=== PATIENT | male | born 1970 | race Caucasian/White ===

== ENCOUNTER 2019-04-12 06:13 | Emergency (ER) | payer OTHER ==
[2019-04-12 06:26] VITALS: BP 141/83; PULSE 77; RESP 20; TEMP 98.1
--- NOTE | 2019-04-12 06:36 | ED ---
Lower Extremity Injury HPI - General Chief Complaint: Extremity Injury, Lower Stated Complaint: [facility] Rt Knee Injury Time Seen by Provider: 04/12/19 06:22 Source: patient, RN notes reviewed Mode of arrival: wheelchair Limitations: no limitations - History of Present Illness Initial Comments: 49-year-old male presents emergency Department with chief complaint of right knee pain. Patient states that he was at work states he went to step down on the step and states that his knee buckled. Patient states his pain in the medial aspect of his knee. Patient states she hasn't it is burning in nature. He states he never felt that his knee moved posteriorly. Patient states he has had surgery on his ACL and meniscus. Patient denies any swelling, bruising at this time. - Related Data Allergies Allergy/AdvReac Type Severity Reaction Status Date / Time No Known Allergies Allergy Verified 04/12/19 06:25 Review of Systems ROS Statement: Those systems with pertinent positive or pertinent negative responses have been documented in the HPI. ROS Other: All systems not noted in ROS Statement are negative. Past Medical History Additional Past Medical History / Comment(s): tetralogy of fallot History of Any Multi-Drug Resistant Organisms: None Reported Past Surgical History: Orthopedic Surgery Past Psychological History: No Psychological Hx Reported Smoking Status: Never smoker Past Alcohol Use History: Occasional Past Drug Use History: None Reported General Exam Limitations: no limitations General appearance: alert, in no apparent distress Head exam: Present: atraumatic, normocephalic, normal inspection Eye exam: Present: normal appearance, PERRL, EOMI. Absent: scleral icterus, conjunctival injection, periorbital swelling Neck exam: Present: normal inspection, full ROM. Absent: tenderness, meningismus, lymphadenopathy Respiratory exam: Present: normal lung sounds bilaterally. Absent: respiratory distress, wheezes, rales, rhonchi, stridor Cardiovascular Exam: Present: regular rate, normal rhythm, normal heart sounds. Absent: systolic murmur, diastolic murmur, rubs, gallop, clicks Extremities exam: Present: other (Right knee there is mild tenderness along the medial aspect. There is no notable swelling, ecchymosis or erythema. Patient has equal pedal pulses. Patient reports pain with valgus, no laxity with anterior posterior drawer test) Skin exam: Present: warm, dry, intact, normal color. Absent: rash Course Vital Signs 04/12/19 06:22 Temperature 98.1 F Pulse Rate 77 Respiratory 20 Rate Blood Pressure 141/83 O2 Sat by Pulse 97 Oximetry Medical Decision Making - Medical Decision Making 49-year-old male presented for right knee injury. X-rays obtained which shows small joint effusion. Patient symptoms consistent with her medial knee sprain. Patient we placed in knee immobilizer will follow-up with [facility] return for any worsening symptoms. Disposition Clinical Impression: Right knee sprain Disposition: HOME SELF-CARE Condition: Stable Instructions (If sedation given, give patient instructions): Knee Sprain (ED) Additional Instructions: Please return to the Emergency Department if symptoms worsen or any other concerns. Is patient prescribed a controlled substance at d/c from ED?: No Referrals: Houston Solares MD [Primary Care Provider] - 1-2 days Time of Disposition: 06:56
--- NOTE | 2019-04-12 06:48 | XR ---
EXAM: XR Right Knee, 3 Views CLINICAL HISTORY: ITS.REASON XR Reason: Medial knee pain TECHNIQUE: Three views of the right knee. COMPARISON: No relevant prior studies available. FINDINGS: Bones/joints: Unremarkable. No acute fracture. No dislocation. Soft tissues: Unremarkable. Other findings: Slight fullness in the suprapatellar region. IMPRESSION: 1. No acute bony abnormality. 2. Suspect tiny joint effusion. 3. If symptoms persist and are out of proportion to the radiographic finding, consider further evaluation with MR
== END 2019-04-12 07:22 | disposition home or self-care (01) ==
LOC: EC 06:13
DX: S83.91XA Sprain of unspecified site of right knee, initial encounter (principal); Q21.3 Tetralogy of Fallot; Z98.890 Other specified postprocedural states; X50.1XXA Overexertion from prolonged static or awkward postures, initial encounter; Y93.89 Activity, other specified; Y92.69 Other specified industrial and construction area as the place of occurrence of the external cause; Y99.0 Civilian activity done for income or pay
CPT/HCPCS: 73562; 99283; L1830

== ENCOUNTER → 2023-12-25 | Outpatient (CLI) | payer BC ==
[2023-12-25 14:27] LABS: Basophils # (A) 0.02 X 10*3/uL (0.00-0.10); Basophils % (A) 0.3 %; Eosinophils # (A) 0.38 X 10*3/uL (0.04-0.35); Eosinophils % (A) 5.7 %; HCT 49.6 % (39.6-50.0); Lymphocytes # (A) 2.37 X 10*3/uL (0.90-5.00); Lymphocytes % (A) 35.5 %; MCH 30.7 pg (27.0-32.0); MCHC 34.3 g/dL (32.0-37.0); MCV 89.5 FL (80.0-97.0); Mean Platelet Volume 10.2 FL (9.5-12.2); Monocytes # (A) 0.61 X 10*3/uL (0.20-1.00); Monocytes % (A) 9.1 %; NRBC Per 100 WBC 0 X 10*3/uL (0.00-0.01); Neutrophils # (A) 3.28 X 10*3/uL (1.80-7.70); Neutrophils % (A) 49.1 %; Platelet Count 292 X 10*3/uL (140-440); RBC 5.54 X 10*6/uL (4.40-5.60); WBC 6.68 X 10*3/uL (4.50-10.00)
== END | disposition home or self-care (01) ==
LOC: LABWHC1 08:33
PROVIDERS: ATTEND Surgery
DX: Z01.818 Encounter for other preprocedural examination (principal); K42.9 Umbilical hernia without obstruction or gangrene
CPT/HCPCS: 85025; 86850; 86900; 86901; 93005

== ENCOUNTER 2024-01-02 05:40 | Day surgery (SDC) | payer BC, OTHER ==
[2024-01-02] MEDS ORDERED: LACTATED RINGERS 1,000 ML IV SCH (06:01)
[2024-01-02] MEDS ORDERED: LIDOCAINE 1% (10MG/ML) FOR IV START INTRADERMA PRN (06:01)
[2024-01-02] MEDS: IV FLUID CONTINUATION 1,000 ML IV ONE (06:06)
[2024-01-02] MEDS: ONDANSETRON 4 MG/2 ML VIAL IVP ONE (06:52)
[2024-01-02] MEDS: HEPARIN SODIUM,PORCINE 5,000 UNIT/ML 1 ML VIAL SQ PRN (06:53)
[2024-01-02] MEDS: ACETAMINOPHEN TAB 500 MG TAB PO PRN (06:53)
[2024-01-02] MEDS: DEXAMETHASONE SOD PHOSPHATE 4 MG/ML 1 ML VIAL IV ONE (06:53)
[2024-01-02] MEDS ORDERED: fentaNYL (PF) 50 MCG/ML 2 ML AMP IVP PRN (07:00)
[2024-01-02] MEDS ORDERED: MIDAZOLAM 2 MG/2 ML VIAL IV PRN (07:00)
[2024-01-02] MEDS ORDERED: HYDROmorphone 0.5 MG/0.5 ML SYRINGE IVP PRN (07:00)
[2024-01-02] MEDS: MIDAZOLAM 2 MG/2 ML VIAL IVP ONE (07:21)
[2024-01-02] MEDS: LIDOCAINE 1%-EPI 1:100,000 20 ML VIAL SQ ONE ×3 (07:33→07:59)
[2024-01-02] MEDS ORDERED: NEOSTIGMINE 1 MG/ML 10 ML VIAL ONE (07:36)
[2024-01-02] MEDS ORDERED: GLYCOPYRROLATE 0.2 MG/ML 2 ML VIAL ONE (07:36)
[2024-01-02] MEDS ORDERED: fentaNYL (PF) 50 MCG/ML 2 ML AMP ONE (07:36)
[2024-01-02] MEDS ORDERED: PHENYLEPHRINE-0.9% NACL SYG 1,000 MCG/10 ML SYRINGE ONE (07:36)
[2024-01-02] MEDS ORDERED: SUCCINYLCHOLINE CHLORIDE 200 MG/10 ML VIAL IV ONE (07:36)
[2024-01-02] MEDS ORDERED: DEXAMETHASONE SOD PHOSPHATE 10 MG/ML 1 ML VIAL ONE (07:36)
[2024-01-02] MEDS ORDERED: ROCURONIUM 10 MG/ML (5 ML VIAL) IV ONE (07:36)
[2024-01-02] MEDS ORDERED: ROPIVACAINE 5 MG/ML 30 ML VIAL ONE (07:36)
[2024-01-02] MEDS ORDERED: PROPOFOL 10 MG/ML 20 ML VIAL IV ONE (07:36)
[2024-01-02] MEDS ORDERED: KETOROLAC 15 MG/ML 1 ML VIAL ONE (07:36)
[2024-01-02] MEDS ORDERED: KETAMINE HCL IN 0.9 % NACL 50 MG/5 ML SYRINGE ONE (07:36)
--- NOTE | 2024-01-02 08:52 | P.OP ---
Date of Procedure: 01/02/24 Preoperative Diagnosis: incarcerated umbilical hernia Postoperative Diagnosis: incarcerated umbilical hernia Procedure(s) Performed: laparoscopic robotic-assisted repair of incarcerated umbilical hernia Partial omentectomy Transversus abdominis plane block Anesthesia: KEZIA Surgeon: Lev Clakr Estimated Blood Loss (ml): 5 Pathology: other (omentum/hernia sac) Condition: stable Disposition: PACU Description of Procedure: The patient was placed on the operating table in the supine position. He received general anesthesia. His abdomen was prepped and draped usual fashion. Using a 5 mm optical trocar under direct visualization the peritoneal cavity was entered in the left upper quadrant. The abdomen was then insufflated. The laparoscope was placed back into the perineal cavity. Next a 8 mm robotic trocar was placed in the left lower quadrant and a 12 mm robotic trocar was placed in the left lateral position. The original 5 mm trocar was exchanged for a 8 mm robotic trocar. A four-quadrant transverse subcostal blocks performed 1% local Xylocaine.The patient's placed in the left side up position. And the patient wasdocked to the robot The umbilical hernia was visualized. Using hook cautery the peritoneum over the umbilical hernia was excised. incarcerated omentum and hernia sac were dissected free sent to pathology. The fascial opening was repaired using 0V LOC suture. Next a piece of 11 cm round ventral light ST mesh was placed into the. Cavity and secured with 2 OV lock suture. The patient was undocked the robot. The needles were retrieved. The fascia of the 12 mm trocar site was closed with 0 Ethibond suture. Skin was closed interrupted 3-0 Monocryl suture. Dermabond dressings was applied. Patient top procedure well and was sent to recovery room stable condition.
[2024-01-02 08:56] VITALS: TEMP 96.8
[2024-01-02 09:03] VITALS: RESP 16
[2024-01-02 10:20] VITALS: BP 123/67; PULSE 58
--- NOTE | 2024-01-03 12:59 | P.ANPRN ---
Procedure Note - Anesthesia - Nerve Block Performed Bilateral Rectus Abdominis Single Time Out Performed: Yes Date of Procedure: 01/02/24 Procedure Start Time: 07:09 Procedure Stop Time: 07:16 Location of Patient: PreOp Indication: Acute Post-Operative Pain, Requested by Surgeon Sedation Type: Sedate with meaningful contact maintained Preparation: Sterile Prep Position: Supine Needle Types: Pajunk Needle Gauge: 21 Ultrasound used to visualize needle placement: Yes Ultrasound used to observe medication spread: Yes Blood Aspirated: No Pain Paresthesia on Injection Noted: No Resistance on Injection: Normal Image Stored and Saved: Yes Events: Uneventful and Well Tolerated (Ropivacaine 0.5% 20 cc plus dexamethasone 4 mg given bilaterally)
== END 2024-01-02 11:45 | disposition home or self-care (01) ==
LOC: OR 05:40
PROVIDERS: ATTEND Surgery
DX: K42.0 Umbilical hernia with obstruction, without gangrene (principal); F95.2 Tourette's disorder; G89.18 Other acute postprocedural pain; Z79.899 Other long term (current) drug therapy; Z98.890 Other specified postprocedural states
CPT/HCPCS: 49592; S2900; 64488; 88302